=== PATIENT | female | born 1970 | race American Indian/Alaskan Native ===

== ENCOUNTER 2017-06-15 23:20 | Emergency (ER) | payer SELFPAY ==
[~2017-06-15] VITALS: Ht 172.7 cm; Wt 128.8 kg
[2017-06-15 23:23] VITALS: BP_SYST 117
[2017-06-16] MEDS ORDERED: IBUPROFEN 800 MG TABLET PO ONE (00:15)
[2017-06-16 01:09] VITALS: BP_SYST 119
== END 2017-06-16 01:09 | disposition home or self-care (01) ==
LOC: SED 23:20
DX: S93.601A Unspecified sprain of right foot, initial encounter (principal); W22.8XXA Striking against or struck by other objects, initial encounter; Y93.89 Activity, other specified; Y92.89 Other specified places as the place of occurrence of the external cause; Y99.8 Other external cause status
CPT/HCPCS: 99284

== ENCOUNTER 2020-05-06 14:19 | Emergency (ER) | payer MEDICAID ==
[~2020-05-06] VITALS: Ht 177.8 cm; Wt 127.0 kg
[2020-05-06 14:24] VITALS: BP_SYST 158
[2020-05-06] MEDS ORDERED: BACITRACIN 1 GM OINT TP ONE ×2 (14:39→14:45)
[2020-05-06] MEDS ORDERED: LIDOCAINE 1%, 20 ML MDV 20 ML ONE (14:52)
[2020-05-06] MEDS ORDERED: LIDOCAINE 1% 10 MG/ML, 20 ML MDV INJ ONE (15:00)
[2020-05-06 15:24] VITALS: BP_SYST 158
== END 2020-05-06 15:22 | disposition home or self-care (01) ==
LOC: SED 14:19
DX: S61.215A Laceration without foreign body of left ring finger without damage to nail, initial encounter (principal); W26.8XXA Contact with other sharp object(s), not elsewhere classified, initial encounter; Y93.89 Activity, other specified; Y92.89 Other specified places as the place of occurrence of the external cause; Y99.8 Other external cause status
CPT/HCPCS: 12001; 99282; J2001

== ENCOUNTER 2023-08-14 21:21 | Emergency (ER) | payer MEDICAID ==
[~2023-08-14] VITALS: Ht 177.8 cm; Wt 131.5 kg
[2023-08-14 21:29] VITALS: BP_SYST 148; PULSE 85; RESP 18; TEMP 78; O2SAT 100
[2023-08-14] MEDS ORDERED: LIDOCAINE 1%, 20 ML MDV 20 ML ONE (22:00)
[2023-08-14] MEDS: LIDOCAINE 1% 10 MG/ML, 20 ML MDV INJ ONE (22:41)
== END 2023-08-14 23:24 | disposition home or self-care (01) ==
LOC: SED 21:21
DX: S01.111A Laceration without foreign body of right eyelid and periocular area, initial encounter (principal); W07.XXXA Fall from chair, initial encounter; Y93.89 Activity, other specified; Y92.89 Other specified places as the place of occurrence of the external cause; Y99.8 Other external cause status
CPT/HCPCS: 99282; J2001

== ENCOUNTER 2023-08-18 12:40 | Emergency (ER) | payer MEDICAID ==
[~2023-08-18] VITALS: Ht 172.7 cm; Wt 113.4 kg
[2023-08-18 12:48] VITALS: BP_SYST 151; PULSE 98; RESP 18; TEMP 98.3; O2SAT 97
[2023-08-18 13:05] VITALS: BP_SYST 151; PULSE 98; RESP 18; TEMP 98.3; O2SAT 97
== END 2023-08-18 13:04 | disposition home or self-care (01) ==
LOC: SED 12:40
DX: Z48.00 Encounter for change or removal of nonsurgical wound dressing (principal)
CPT/HCPCS: 99281

== ENCOUNTER 2023-08-23 13:19 | Emergency (ER) | payer MEDICAID ==
[~2023-08-23] VITALS: Ht 175.3 cm; Wt 113.4 kg
[2023-08-23 13:30] VITALS: BP_SYST 149; PULSE 95; RESP 14; TEMP 98.1; O2SAT 97
[2023-08-23] MEDS ORDERED: CEPH250C PO (13:57)
[2023-08-23 14:36] VITALS: BP_SYST 149; PULSE 95; RESP 14; TEMP 98.1; O2SAT 97
== END 2023-08-23 14:36 | disposition home or self-care (01) ==
LOC: SED 13:19
DX: S01.111D Laceration without foreign body of right eyelid and periocular area, subsequent encounter (principal); X58.XXXD Exposure to other specified factors, subsequent encounter
CPT/HCPCS: 99283